=== PATIENT | female | born 1945 | race African-American/Black ===

== ENCOUNTER 2017-11-06 10:33 | Outpatient (CLI) | payer BC, MEDICARE ==
[2017-11-06 12:32] LABS: Prothrombin Time 12.8 SEC (12.0-14.7)
[2017-11-06 12:40] LABS: PTT 21.4 SEC (22.9-36.1)
[2017-11-06 12:43] LABS: Anion Gap 18 mmol/L (10-20); BUN (Urea Nitrogen) 24 mg/dL (9.8-20.1); Calc. Creatinine Clearance 0 mL/min (70-130); Calcium 9.5 mg/dL (7.8-10.44); Carbon Dioxide 15 mmol/L (23-31); Chloride 109 mmol/L (98-107); Estimated GFR-MDRD 42; Glucose 106 mg/dL (83-110); Potassium 6.1 mmol/L (3.5-5.1); Sodium 136 mmol/L (136-145)
[2017-11-06 12:47] LABS: Hemoglobin 11.4 g/dL (12.0-16.0); Mean Corpuscular HGB CONC 30.3 g/dL (32.0-36.0); Mean Corpuscular Hemoglobin 25.6 pg (27.0-31.0); Mean Corpuscular Volume 84.6 fl (81.0-99.0); Mean Platelet Volume 8.4 fL (7.4-10.4); Platelet Count 271 thou/uL (130-400); RBC Distribution Width 13.9 % (11.5-14.5); Red Blood Cell (RBC) Count 4.45 mill/uL (4.20-5.40); White Blood Cell (WBC) Count 7.5 thou/uL (4.8-10.8)
--- NOTE | 2017-11-06 16:44 | EKG ---
Test Reason : Blood Pressure : / mmHG Vent. Rate : 057 BPM Atrial Rate : 057 BPM P-R Int : 162 ms QRS Dur : 078 ms QT Int : 402 ms P-R-T Axes : 053 030 021 degrees QTc Int : 391 ms Sinus bradycardia Otherwise normal ECG No previous ECGs available Confirmed by CHANDA BRENNAN ([id number]) on 11/06/2017 4:44:06 PM Referred By: JONNY Confirmed By:CHANDA BRENNAN
== END 2017-11-06 10:34 | disposition home or self-care (01) ==
LOC: LABBT 10:33
PROVIDERS: ATTEND Surgery
DX: Z01.818 Encounter for other preprocedural examination (principal); M48.062 Spinal stenosis, lumbar region with neurogenic claudication; M54.16 Radiculopathy, lumbar region; G95.9 Disease of spinal cord, unspecified
CPT/HCPCS: 80048; 85027; 85610; 85730; 93005; 93010

== ENCOUNTER → 2017-11-09 | Day surgery (SDC) | payer BC, MEDICARE ==
[2017-11-06 10:47] VITALS: BMI 39.7
[~2017-11-09] MED LIST: Acetaminophen 325 MG TAB PO PRN; Acetaminophen/Codeine 30-300mg Tablet PO PRN; Albumin 5% 500 ML ONE; Bacitracin Zinc Ointment 30 gm TUBE ONE; Bisacodyl 10 MG SUPP PR PRN; Clindamycin/D5W 900 mg/50 ml Premix Bag ONE; Dexamethasone 20 MG/5 ML VIAL ONE; Fentanyl 100 MCG/2 ML VIAL ONE; Fleet Enema 133 ML BOT PR PRN; Glycopyrrolate 0.2 MG/ML 5 ML SYRINGE ONE; HYDROmorphone 0.5 MG/0.5 ML SYRINGE ONE; HYDROmorphone 2 MG/ML VIAL SLOW IVP PRN; Latanoprost 0.005% Ophth Soln 2.5 ml Bottle EA EYE SCH; Levofloxacin 500 mg/D5W 100 ml Premix Bag ONE; Lidocaine 1% PF 5 ML VIAL ONE; Mag-Al 1200 mg/1200 mg/30 ML UDCUP PO PRN; Meperidine HCl/PF 25 MG/ML VIAL SLOW IVP PRN; Metoclopramide HCl 10 MG/2 ML VIAL ONE; Morphine Sulfate 2 MG/ML SYRINGE SLOW IVP PRN; Ondansetron HCl/PF 4 MG/2 ML Vial IVP PRN; Ondansetron HCl/PF 4 MG/2 ML Vial ONE; PHENYLEPHRINE-NS 100 MCG/ML 10 ML SYRINGE ONE; PROPOFOL 200 MG/20 ML VIAL ONE; Promethazine HCl 25 MG/ML VIAL IM PRN; Promethazine HCl 25 MG/ML VIAL SLOW IVP PRN; Sodium Chloride 0.9% 10 ML ONE; Thrombin 5000 UNITS/5 ML VIAL ONE; tiZANidine HCl 4 MG TAB PO PRN; traMADol HCl 50 MG TAB PO PRN
[2017-11-09] MEDS: Clindamycin/D5W 900 MG in Premix Bag 1 BAG IVPB SCH ×2 (15:27→21:22)
[2017-11-09] MEDS: Sodium Chloride 0.9% 1,000 ML IV SCH (15:27)
[2017-11-09] MEDS: metFORMIN 500 MG TAB PO SCH (16:37)
--- NOTE | 2017-11-09 19:04 | OP ---
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 POSTPROCEDURE DIAGNOSIS: Multilevel thoracolumbar stenosis with thoracic myelopathy and lumbar radi culopathy with neurogenic claudication, pain, and gait decline. SURGEON: Liam Wharton MD HOME HEALTH CLINICAL LIAISON: Sage Almeida PA-C PROCEDURES: 1. T9-T10 laminectomy, partial facetectomy, foraminotomies. 2. T11-T12, L1-L2, L2-L3, L3-L4, L4-L5 laminectomies, partial facetectomy, and foraminotomies. DESCRIPTION OF PROCEDURE: After informed consent was obtained from the patient, the patient was brou ght to OR 11. Proper patient pause and identification was carried out. She was placed under excelle nt general endotracheal anesthesia and positioned prone on the OR table. All appropriate points were padded. Identified the T9, T10, T12, L1, L2, L3, L4, L5 dorsal spines and lamina. An incision was drawn out over this area. The region was sterilely cleansed, prepared, and draped. Proper patient p ause and identification was carried out. The wound was then opened with a combination of sharp, mono polar, and blunt dissection. T9, T10, T12, L1, L2, L3, L4, L5 dorsal spines and lamina were exposed. We then performed following localization T9, T10, T12, L1, L2, L3, L4, L5 laminectomies, partial fa cetectomies, and foraminotomies. Originally, I had opted against doing an L3-L4 laminectomy as the s tenosis was not profound; however, at the conclusion of the decompression just leaving the L3-L4 segm ent, I was concerned that there may be a progression in stenosis and as such, I opted to decompress t his segment as well to avoid any type of adjacent segment disease. Stability was preserved. Copious irrigation occurred throughout as did maximized hemostasis. The wound was copiously irrigated and c losed in anatomic layers following sprinkle of vancomycin powder. [facility].
[2017-11-09] MEDS: Carvedilol 6.25 MG TAB PO SCH (21:21)
[2017-11-09] MEDS: Pravastatin Sodium 20 MG TAB PO SCH (21:22)
[2017-11-09] MEDS: Glimepiride 2 MG TAB PO SCH (21:22)
[2017-11-10] MEDS: HYDROcodone/Acetaminophen 7.5/325 mg Tablet PO PRN ×4 (02:35→21:12)
[2017-11-10] MEDS: Sodium Chloride 0.9% 1,000 ML IV SCH ×2 (03:01→17:52)
[2017-11-10] MEDS: Glimepiride 2 MG TAB PO SCH ×2 (09:00→21:54)
[2017-11-10] MEDS: Cyanocobalamin (Vitamin B-12) 1,000 MCG TAB PO SCH (10:00)
[2017-11-10] MEDS: metFORMIN 500 MG TAB PO SCH ×2 (10:00→17:52)
[2017-11-10] MEDS: Multivitamin W/ Minerals 1 TAB PO SCH (10:00)
[2017-11-10] MEDS: Ferrous Sulfate 325 MG TAB PO SCH (10:01)
[2017-11-10] MEDS: Hydrochlorothiazide 25 MG TAB PO SCH (10:01)
[2017-11-10] MEDS: Carvedilol 6.25 MG TAB PO SCH ×2 (10:02→21:11)
[2017-11-10] MEDS: Losartan 25 MG TAB PO SCH (10:02)
[2017-11-10] MEDS: Milk Of Magnesia 30 ML UDCUP PO PRN (14:50)
[2017-11-10] MEDS: Pravastatin Sodium 20 MG TAB PO SCH (21:11)
[2017-11-10] MEDS: Promethazine HCl 25 MG/ML VIAL IM PRN (21:12)
--- NOTE | 2017-11-10 23:20 | PRG ---
DATE OF SERVICE: 11/10/2017 Ms. Brito is postoperative day 1 from multiple laminectomies. She is doing very well. She is a lready immobilizing in the halls and we will maximize physical therapy that I anticipate at least ano ther day in the hospital. She feels as her legs have less fatigue and then when she ambulates, which is excellent .
[2017-11-11] MEDS: Sodium Chloride 0.9% 1,000 ML IV SCH ×2 (06:03→18:03)
[2017-11-11] MEDS: Losartan 25 MG TAB PO SCH (09:51)
[2017-11-11] MEDS: metFORMIN 500 MG TAB PO SCH ×2 (09:51→17:08)
[2017-11-11] MEDS: Carvedilol 6.25 MG TAB PO SCH ×2 (09:51→20:00)
[2017-11-11] MEDS: Hydrochlorothiazide 25 MG TAB PO SCH (09:51)
[2017-11-11] MEDS: Glimepiride 2 MG TAB PO SCH ×2 (09:52→20:00)
[2017-11-11] MEDS: Ferrous Sulfate 325 MG TAB PO SCH (09:52)
[2017-11-11] MEDS: Cyanocobalamin (Vitamin B-12) 1,000 MCG TAB PO SCH (09:52)
[2017-11-11] MEDS: Multivitamin W/ Minerals 1 TAB PO SCH (09:52)
[2017-11-11] MEDS: HYDROcodone/Acetaminophen 7.5/325 mg Tablet PO PRN (09:57)
--- NOTE | 2017-11-11 12:49 | PRG ---
DATE OF SERVICE: 11/11/2017 SUBJECTIVE: Ms. Brito is now postoperative day #3, having undergone multilevel thoracic and lumbar la minectomy. The patient complains of incisional back pain, but states her preoperative leg, fatigue a nd pain has resolved. She has been working some with physical therapy, but still needs significant a mount of help ambulating due to back pain. It has been suggested that the patient would benefit from inpatient rehabilitation. PHYSICAL EXAMINATION: She has good strength in the bilateral lower extremities, although is occasion ally using a walker. PLAN: Our plan now would be to have her continue to work with therapies. We will plan for arrangeme nts to be made for inpatient rehabilitation. Certainly, we will continue to follow the patient. Ple ase call with any questions or changes in the patient's neurologic status. Sage Almeida PA-C dictating for Dr. Liam Wharton.
[2017-11-11] MEDS: Promethazine HCl 25 MG/ML VIAL IM PRN (17:09)
[2017-11-11] MEDS: Milk Of Magnesia 30 ML UDCUP PO PRN (17:14)
[2017-11-11] MEDS: Pravastatin Sodium 20 MG TAB PO SCH (20:00)
[2017-11-12] MEDS: Sodium Chloride 0.9% 1,000 ML IV SCH (08:37)
[2017-11-12] MEDS: Hydrochlorothiazide 25 MG TAB PO SCH (08:46)
[2017-11-12] MEDS: Cyanocobalamin (Vitamin B-12) 1,000 MCG TAB PO SCH (08:47)
[2017-11-12] MEDS: Losartan 25 MG TAB PO SCH (08:47)
[2017-11-12] MEDS: Ferrous Sulfate 325 MG TAB PO SCH (08:48)
[2017-11-12] MEDS: metFORMIN 500 MG TAB PO SCH ×2 (08:48→18:09)
[2017-11-12] MEDS: Multivitamin W/ Minerals 1 TAB PO SCH (08:49)
[2017-11-12] MEDS: Glimepiride 2 MG TAB PO SCH ×2 (08:49→21:48)
[2017-11-12] MEDS: Carvedilol 6.25 MG TAB PO SCH ×2 (08:49→21:56)
--- NOTE | 2017-11-12 11:27 | PRG ---
DATE OF SERVICE: 11/12/2017 POSTOPERATIVE NOTE Sage Almeida PA-C dictating for Dr. Liam Wharton. Ms. Brito is now postoperative day #3 having undergone multilevel thoracic and lumbar laminectomies fo r spinal stenosis. The patient is continuing to do well. She does complain of continued incisional back pain, but had complete resolution of her preoperative leg pain. She has been working with [facility] and again remains a good candidate for inpatient rehabilitation. She is at her neurologic baselin e with good strength in the bilateral lower extremities. We will continue to await recommendations f rom physical therapy and placed in an inpatient rehab when approved by her insurance. Please call wi th any questions or changes in patient's neurologic status.
[2017-11-12] MEDS: HYDROcodone/Acetaminophen 7.5/325 mg Tablet PO PRN (15:19)
[2017-11-12] MEDS: Empagliflozin [Jardiance] 10 MG PO SCH ×2 (18:08→18:09)
[2017-11-12] MEDS: Pravastatin Sodium 20 MG TAB PO SCH (21:48)
--- NOTE | 2017-11-13 08:56 | PRG ---
DATE OF SERVICE: 11/13/2017 Ms. Brito is now postoperative day #4, having undergone multilevel thoracic and lumbar laminectomies. She complains today of some right posterior buttock and thigh pain, but states she increased her act ivity yesterday by her walking around the surgical unit. She states with rest and pain medications i t improved. She continues to have incisional back pain, but overall states she is doing well. She h as good strength in the bilateral lower extremities with intact sensation throughout. Our plan now is to continue working with therapy and wait for insurance approval for inpatient rehabi litation. Please call with any questions.
[2017-11-13] MEDS: Carvedilol 6.25 MG TAB PO SCH (09:46)
[2017-11-13] MEDS: metFORMIN 500 MG TAB PO SCH (09:47)
[2017-11-13] MEDS: Losartan 25 MG TAB PO SCH (09:47)
[2017-11-13] MEDS: Ferrous Sulfate 325 MG TAB PO SCH (09:48)
[2017-11-13] MEDS: Multivitamin W/ Minerals 1 TAB PO SCH (09:48)
[2017-11-13] MEDS: Hydrochlorothiazide 25 MG TAB PO SCH (09:48)
[2017-11-13] MEDS: Cyanocobalamin (Vitamin B-12) 1,000 MCG TAB PO SCH (09:48)
[2017-11-13] MEDS: HYDROcodone/Acetaminophen 7.5/325 mg Tablet PO PRN (09:56)
[2017-11-13] MEDS: Glimepiride 2 MG TAB PO SCH (11:38)
[2017-11-13 12:11] VITALS: BP 112/70; TEMP 98.7
== END ==
LOC: SDC 05:36 → SJJU 14:55
PROVIDERS: ATTEND Surgery
PROC: 01N80ZZ Release Thoracic Nerve, Open Approach (ICD-10-PCS; principal; 2017-11-09)
PROC: 01NB0ZZ Release Lumbar Nerve, Open Approach (ICD-10-PCS; principal; 2017-11-09)
DX: M48.04 Spinal stenosis, thoracic region (principal); M47.14 Other spondylosis with myelopathy, thoracic region; M48.062 Spinal stenosis, lumbar region with neurogenic claudication; M54.16 Radiculopathy, lumbar region; Z88.0 Allergy status to penicillin; Z79.84 Long term (current) use of oral hypoglycemic drugs; Z79.82 Long term (current) use of aspirin; Z79.899 Other long term (current) drug therapy
CPT/HCPCS: 36415; 36416; 76001; 84132; 96374; A4216; G8978-GP-CL; G8979-GP-CI; G8987-GO-CK; G8988-GO-CI; J0131; J1100; J1170; J1956; J2001; J2270; J2405; J2550; J2704; J2765; J3010; J3370; J3490; P9045

== ENCOUNTER 2017-11-27 17:24 | Emergency (ER) | payer BC, MEDICARE ==
[2017-11-27 18:56] LABS: #Basophils 0.1 thou/uL (0.0-0.2); #Eosinphils 0.3 thou/uL (0.0-0.7); #Lymphocytes 2.1 thou/uL (1.20-3.40); #Monocytes 0.7 thou/uL (0.11-0.59); #Neutrophils 5.3 thou/uL (1.40-6.50); %Basophils 0.8 % (0.0-1.0); %Eosinophils 3.8 % (0.0-10.0); %Lymphocytes 24.1 % (21.0-51.0); %Monocytes 8.7 % (0.0-10.0); %Neutrophils 62.5 % (42.0-75.0); Hemoglobin 10.5 g/dL (12.0-16.0); Mean Corpuscular HGB CONC 31.2 g/dL (32.0-36.0); Mean Corpuscular Hemoglobin 25.8 pg (27.0-31.0); Mean Corpuscular Volume 82.6 fL (78.0-98.0); Mean Platelet Volume 6.3 fL (7.4-10.4); Platelet Count 569 thou/uL (130-400); RBC Distribution Width 13.5 % (11.5-14.5); Red Blood Cell (RBC) Count 4.09 mill/uL (4.20-5.40); White Blood Cell (WBC) Count 8.5 thou/uL (4.8-10.8)
[2017-11-27 19:17] LABS: ALT (SGPT) 10 U/L (8-55); AST (SGOT) 13 U/L (5-34); Alkaline Phosphatase 67 U/L (40-150); Anion Gap 16 mmol/L (10-20); BUN (Urea Nitrogen) 11 mg/dL (9.8-20.1); Bilirubin, Total 0.2 mg/dL (0.2-1.2); Calc. Creatinine Clearance 0 mL/min (70-130); Calcium 9.7 mg/dL (7.8-10.44); Carbon Dioxide 25 mmol/L (23-31); Chloride 103 mmol/L (98-107); Estimated GFR-MDRD 46; Globulin 3.6 g/dL (2.4-3.5); Potassium 4.5 mmol/L (3.5-5.1); Protein, Total 7.6 g/dL (6.0-8.3); Sodium 139 mmol/L (136-145)
[2017-11-27 19:33] LABS: Glucose 51 mg/dL (83-110)
[2017-11-27] MEDS ORDERED: Dextrose 50% Abboject 50 ML SYRINGE ONE (19:34)
--- NOTE | 2017-11-27 21:55 | CON ---
DATE OF CONSULTATION: 11/27/2017 HISTORY OF PRESENT ILLNESS: Ms. Brito is a pleasant 72-year-old woman who is now roughly 3 weeks out from a thoracolumbar decompression with Dr. Wharton. She had a 2-week postop last week with unruly li. It was noted that she had a small area of erythema and mild desquamation and was placed on 2 weeks of Levaquin. She returned today at her home health nurses request for now an increased area o f desquamation and possible dehiscence. This area measures roughly 5-6 cm in length throughout the d istal portion of the incision site, but is not particularly deep. There is some mucoid purulent mate rial superficially; however, it does not track deep. Patient will be rebandaged and dressed in the e mergency department and I would like to see her in 3 days in the clinic to reevaluate her wound. If all goes well, we will just continue to have her on antibiotics. I do not see the need to oversew.
== END 2017-11-27 21:31 | disposition home or self-care (01) ==
LOC: ERS 17:24
DX: T81.30XA Disruption of wound, unspecified, initial encounter (principal); E11.9 Type 2 diabetes mellitus without complications; E78.5 Hyperlipidemia, unspecified; I10 Essential (primary) hypertension; Z79.899 Other long term (current) drug therapy; Z79.84 Long term (current) use of oral hypoglycemic drugs
CPT/HCPCS: 36415; 80053; 83605; 85025; 87070; 87077; 87186; 87205; 99283

== ENCOUNTER 2018-01-24 14:21 | Outpatient (CLI) | payer BC, MEDICARE ==
--- NOTE | 2018-01-24 16:09 | PRG ---
DATE OF SERVICE: 01/24/2018 HISTORY: Ms. Yina Brito is a very pleasant 72-year-old who presents to the [facility] for evaluati on of a nonhealing surgical wound of the back in the midline subsequent to surgery for multilevel tho racolumbar stenosis with thoracic myelopathy and lumbar radiculopathy. The patient underwent the pre ceding procedure on 11/09/[address] Liam Wharton. The patient stated that at a followup visit on 0 11/24/2017, her unruly were discontinued. She stated that at this time because of the appearance of the wound, she was placed on a 10-day course of p.o. Levaquin. On 12/06/2017 at another followup vi sit, the patient was placed on a second course of Levaquin for 7 days. The patient states that at a followup visit on 12/20/2017, she was referred to the Wound Center for further evaluation and treatme nt. Prior to being seen in the Wound Center, the patient had been receiving dressing changes of bord ered gauze for the wound of her back in the midline with the assistance of [facility] The patient received these dressing changes on a daily basis. After being seen in the Wound [facility], dressing changes of Promogran were initiated. The patient has been receiving these dressing radha nges 3 times per week after cleansing and irrigation with the assistance of Home Health. PHYSICAL EXAMINATION: VITAL SIGNS: Temperature 97.8, pulse 71, respirations 21, blood pressure 150/67. Accu-Chek 175. BACK: A wound of the lower back in the midline is present. The dimensions of the wound are approxim ately 2.5 x 0.5 cm. The dimensions of the wound at the time of the patient's last visit were approxi mately 5.7 x 0.8 cm. Granulation tissue is present within the wound margins. Necrotic and nonviable tissue present within the wound margins was debrided with an excisional full-thickness debridement w ith the use of a curette. No purulent drainage is associated with the wound. No erythema of the ski n surrounding the wound is present. No maceration of the skin of the periwound is noted. ASSESSMENT AND PLAN: 1. Nonhealing surgical wound of lower back in the midline subsequent to surgery for multilevel thora columbar stenosis with thoracic myelopathy and lumbar radiculopathy. The patient underwent the prece ding procedure on 11/09/[address] Liam Wharton. Dressing changes of Promogran and bordered gauze w ill be continued 3 times per week after cleansing and irrigation with the assistance of Home Health. The patient will be seen by Neurosurgery in 3 weeks. I will see Ms. Brito again as needed after her evaluation by Neurosurgery. 2. Diabetes mellitus. The patient's Accu-Chek in clinic today is 175. The patient has been reminde d that for optimal wound healing, her blood glucoses should remain below 150. 3. Hypertension.
== END 2018-01-24 14:22 | disposition home or self-care (01) ==
LOC: WCC 14:21
PROVIDERS: ATTEND Family Medicine
DX: T81.89XD Other complications of procedures, not elsewhere classified, subsequent encounter (principal); E11.9 Type 2 diabetes mellitus without complications; I10 Essential (primary) hypertension